=== PATIENT | female | born 1995 | race Hispanic/Latino ===

== ENCOUNTER 2023-10-04 22:13 | Emergency (ER) | payer MEDICARE, MEDICAID, SELFPAY ==
[2023-10-04 22:16] VITALS: PULSE 107; RESP 20; O2SAT 98
[2023-10-04 22:21] VITALS: BMI 31.1
[2023-10-04 22:32] VITALS: BP 106/68; PULSE 89; RESP 18; TEMP 37; O2SAT 99
--- NOTE | 2023-10-04 22:42 | EDNOTE_ITS ---
<Statement entered by Marce Austin MD - 10/05/23 05:06> As co-signing physician, I was present and available for consult prn. I concur with the plan and care as documented by the midlevel provider. ED Anxiety RME/HPI General Chief Complaint: General Adult/Misc Complain Stated Complaint: SOB Time Seen by Provider: 10/04/23 22:42 Arrival date/time: 10/04/23 22:13 Limitations: no limitations RME / HPI RME / HPI narrative: Patient is a 28-year-old female with a history of anxiety, asthma, and she is currently 17 months . She states she has been smoking but has been craving cigarettes. She states her boyfriend was smoking cigarettes so she inhaled secondhand smoke. Afterwards she felt anxious and had chest discomfort. She had palpitations and began using her inhaler. She states this all occurred 30 minutes prior to arrival. She has no other acute complaints. Related Data Previous Rx's ?Medication ?Instructions ?Recorded acetaminophen 500 mg tablet 1,000 mg (2 x 500 mg) PO Q6H PRN 07/24/23 (Tylenol Extra Strength) fever or pain #30 tabs diphenhydramine HCl 25 mg capsule 25 mg PO TID PRN nausea and 07/24/23 (Allergy (diphenhydramine)) vomiting #14 caps doxylamine 10 mg-pyridoxine (vit 1 tab PO BID PRN nausea and 08/08/23 B6) 10 mg tablet,delayed release vomiting #20 tabs (Diclegis) doxylamine 10 mg-pyridoxine (vit 1 tab PO BID PRN nausea and 09/27/23 B6) 10 mg tablet,delayed release vomiting #60 tabs Allergies Allergy/AdvReac Type Severity Reaction Status Date / Time diphenhydramine Allergy Severe Difficulty Verified 09/28/23 23:10 [From Benadryl] Breathing shellfish derived Allergy Severe Anaphylaxis Verified 09/26/23 22:13 Review of Systems Review of Systems Systems Reviewed: All systems reviewed, normal except as documented ED Exam General Limitations: Present no limitations General appearance: Present alert and in no apparent distress Head Head exam: Present atraumatic Eye Eye exam: Present normal appearance, PERRL and EOMI ENT ENT exam: Present normal exam, normal oropharynx and mucous membranes moist Neck Neck exam: Present normal inspection, full ROM and trachea midline Chest Chest inspection: Present normal inspection and symmetric chest wall rise Respiratory Respiratory exam: Present normal lung sounds bilaterally Cardiovascular Cardiovascular exam: Present regular rate, normal rhythm and normal heart sounds Abdominal Exam Abdominal exam: Present soft and normal bowel sounds Extremities Exam Extremities exam: Present normal inspection and full ROM Back Exam Back exam: Present normal inspection and full ROM Neurological Exam Neurological exam: Present alert, oriented X3 and CN II-XII intact Psychiatric Psychiatric exam: Present anxious Skin Skin exam: Present warm, dry, intact and normal color Course Quality Measures none Vital Signs Vital signs: Vital Signs Temperature 98.6 F 10/04/23 22:32 Pulse Rate 89 10/04/23 22:32 Respiratory Rate 18 10/04/23 22:32 Blood Pressure 106/68 10/04/23 22:32 Pulse Oximetry (%) 99 10/04/23 22:32 Oxygen Delivery Method Room Air 10/04/23 22:32 Anxiety MDM Narrative MDM Narrative: Patient is a 28-year-old female with a history of anxiety, asthma, and she is currently 17 months . She states she has been smoking but has been craving cigarettes. She states her boyfriend was smoking cigarettes so she inhaled secondhand smoke. Afterwards she felt anxious and had chest discomfort. She had palpitations and began using her inhaler. She states this all occurred 30 minutes prior to arrival. She has no other acute complaints. Vital signs are stable and patient has no respiratory distress. She is anxious appearing. Lungs are clear bilaterally. I do believe she be discharged the at this time. We discussed her anxiety reaction and need to avoid tobacco and all forms. She is asked to follow-up with primary care provider and [facility]. Return for any worsening or emergent changes. Patient data External records reviewed:: None Clinical information provided by:: patient Social determinants that could affect healthcare access:: none Patient has the following chronic illnesses:: Asthma, anxiety How is presenting disease/condition affected by chronic disease/condition?: exacerbated by Evaluation data The following diagnostics were reviewed and interpreted by me:: other (specify) Lab and/or radiology exams considered but not ordered:: n/a Interpretation Summary: n/a Medications / Prescriptions Medications or Prescriptions considered but not ordered:: n/a Medication administrations:: n/a Consultations Consultation(s) initiated? (list below): No Diagnosis Most likely diagnosis given after review of the tests above:: n/a Admission Indicated Admission indicated?: not indicated Admission Request Was there a request for admission?: No Disposition Plan Disposition Plan: Discharge Discharge Attestation Discharge Attestation: The patient and all family members were given an opportunity to ask questions and understood the discharge instructions. Discharge instructions specifically effects, indications for sooner follow up or return to the emergency department, and the expected course of current diagnosis. Patient condition: Stable Discharge Plan Plan Patient Disposition: HOME (Self Care) Patient condition on transfer: Stable Prescriptions/Referrals Prescriptions/Med Rec: No Action acetaminophen [Tylenol Extra Strength] 500 mg tablet 1,000 mg PO Q6H PRN (Reason: fever or pain) Qty: 30 0RF diphenhydramine HCl [Allergy (diphenhydramine)] 25 mg capsule 25 mg PO TID PRN (Reason: nausea and vomiting) Qty: 14 0RF doxylamine-pyridoxine (vit B6) 10-10 mg tablet,delayed release (DR/EC) 1 tab PO BID PRN (Reason: nausea and vomiting) Qty: 60 0RF doxylamine-pyridoxine (vit B6) [Diclegis] 10-10 mg tablet,delayed release (DR/EC) 1 tab PO BID PRN (Reason: nausea and vomiting) Qty: 20 0RF Problem List Clinical Impression: Anxiety Patient/Caregiver Discharge Instructions Education Materials: ED Anxiety Reaction Additional Instructions: Avoid all forms of tobacco. Follow-up with your primary doctor and [facility] as needed. Return here for any worsening emergent changes f Print Language: [place] Stand Alone Forms: [facility]oe Award Info., Patient Portal Info Letter
--- NOTE | 2023-10-04 22:48 | PC.NURSE ---
patient left before discharge papers.
== END 2023-10-04 22:45 | disposition home or self-care (01) ==
LOC: SERX 23:07
PROVIDERS: Emergency Provider Emergency Medicine
DX: O99.342 Other mental disorders complicating pregnancy, second trimester (principal); F41.9 Anxiety disorder, unspecified; Z3A.17 17 weeks gestation of pregnancy
CPT/HCPCS: 99281